=== PATIENT | male | born 1970 | race Caucasian/White ===

== ENCOUNTER 2018-03-08 09:34 | Day surgery (SDC) | payer BC ==
[2018-03-08] MEDS ORDERED: MULT-933 PO (10:00)
== END 2018-03-08 11:24 | disposition home or self-care (01) ==
LOC: WOUND CARE 09:34
PROVIDERS: ATTEND Surgery
DX: L72.3 Sebaceous cyst (principal); L53.8 Other specified erythematous conditions
CPT/HCPCS: 10061; A6212

== ENCOUNTER 2018-03-09 08:00 | Day surgery (SDC) | payer BC ==
[~2018-03-09] VITALS: Ht 195.6 cm; Wt 130.4 kg
[~2018-03-09 08:00] MED LIST: MULT-933 PO; ceFAZolin inj. 3,000 MG in normal saline 100ml IV soln 100 ML IV ONE; famotidine 20mg tablet PO ONE; ringers solution, lacted 1,000 ML IV SCH
[2018-03-09 09:18] LABS: BASOPHILS % (AUTO) 0.6 % (0-1); EOSINOPHILS # (AUTO) 0.2 X10'3 (0-0.9); EOSINOPHILS % (AUTO) 3.2 % (0-6); LYMPHOCYTES # (AUTO) 2.7 X10'3 (1.1-4.8); LYMPHOCYTES % (AUTO) 39.1 % (21-51); MEAN CORPUSCULAR HEMOGLOBIN 32.9 PG (27.0-31.0); MEAN CORPUSCULAR HGB CONC 34.4 % (33.0-36.5); MEAN CORPUSCULAR VOLUME 95.5 FL (78-98); MEAN PLATELET VOLUME 8.6 FL (7.4-10.4); MONOCYTES # (AUTO) 0.4 X10'3 (0-0.9); MONOCYTES % (AUTO) 6.4 % (2-12); NEUTROPHILS # (AUTO) 3.5 X10'3 (1.8-7.7); NEUTROPHILS % (AUTO) 50.7 % (42-75); PRE OP HEMOGLOBIN 14.4 g/dL (14.0-17.9); PRE OP PLATELET COUNT 163 X10'3 (140-440); RED CELL DISTRIBUTION WIDTH 12.2 % (11.5-14.5)
[2018-03-09] MEDS ORDERED: ringers solution, lacted 1,000 ML IV SCH (09:37)
[2018-03-09] MEDS ORDERED: meperidine/PF 25mg/ml syringe IV PRN ×3 (09:40)
[2018-03-09] MEDS ORDERED: proCHLORperazine 10 MG/2 ml inj IV PRN (09:40)
[2018-03-09] MEDS ORDERED: morphine 4 MG/ML inj SYRINge IV PRN ×2 (09:40)
[2018-03-09] MEDS ORDERED: ondansetron/PF 4mg/2ml inj IV PRN (09:40)
[2018-03-09 09:46] LABS: ALBUMIN 3.4 G/DL (3.4-5.0); ALBUMIN/GLOBULIN RATIO 0.9 (1.1-1.5); ALKALINE PHOSPHATASE 69 IU/L (46-116); BLOOD UREA NITROGEN 12 MG/DL (7-18); BUN/CREATININE RATIO 13.8 (5.4-32.0); CALCIUM 9.2 MG/DL (8.5-10.1); CHLORIDE 106 MMOL/L (99-107); CREATININE 0.87 MG/DL (0.60-1.10); PRE OP ALT 34 U/L (30-65); PRE OP ANION GAP 12 (8-16); PRE OP AST 28 U/L (10-37); PRE OP BILIRUB, TOTAL 0.4 MG/DL (0.0-1.0); PRE OP GLUCOSE 99 MG/DL (70-104); PRE OP POTASSIUM 4.4 MMOL/L (3.4-5.1); PRE OP SODIUM 142 MMOL/L (135-145); TOTAL CARBON DIOXIDE 23.6 MMOL/L (24-32); eGFR > 90 ML/MIN
[2018-03-09] MEDS ORDERED: LIDOcaine 1% (10mg/ml) 2ml vial ONE (10:11)
[2018-03-09] MEDS ORDERED: LIDOcaine 1% 30ml preserv. free vial ONE (11:34)
[2018-03-09] MEDS ORDERED: BUPIVAcaine/PF 2.5mg/ml (0.25%) 10ml vial ONE (11:34)
[2018-03-09 11:41] VITALS: BP 125/76
[2018-03-09 11:48] VITALS: BP 125/76
[2018-03-09] MEDS ORDERED: fentaNYL/PF 50MCG/1 ML 2ML syringe ONE (11:53)
[2018-03-09] MEDS ORDERED: MIDAZolam 5mg/5ml vial ONE (11:54)
[2018-03-09] MEDS ORDERED: propofol inj 20 ML IV ONE (12:39)
[2018-03-09 13:05] VITALS: BP 124/81
[2018-03-09 13:15] VITALS: BP 126/81
[2018-03-09 13:25] VITALS: BP 130/93
[2018-03-09 13:35] VITALS: BP 125/84
== END 2018-03-09 13:50 | disposition home or self-care (01) ==
LOC: PAS 08:00
PROVIDERS: ATTEND Surgery
DX: D17.0 Benign lipomatous neoplasm of skin and subcutaneous tissue of head, face and neck (principal); E66.9 Obesity, unspecified; Z68.34 Body mass index [BMI] 34.0-34.9, adult; Z87.891 Personal history of nicotine dependence; Z98.890 Other specified postprocedural states; Z79.899 Other long term (current) drug therapy
CPT/HCPCS: 21556; 36415; 80053; 85025; A4615; A6255; A6449; J0690; J2250; J2704; J3010; J3490; J7030; J7120; 93005; A7000

== ENCOUNTER 2018-03-15 09:08 | Outpatient (CLI) | payer BC ==
[~2018-03-15 09:08] MED LIST changes: -ceFAZolin inj. 3,000 MG in normal saline 100ml IV soln 100 ML IV ONE; -famotidine 20mg tablet PO ONE; -ringers solution, lacted 1,000 ML IV SCH
== END 2018-03-15 11:47 | disposition home or self-care (01) ==
LOC: WOUND CARE 09:08 → EDSTATUS 09:30 → WOUND CARE 11:47
PROVIDERS: ATTEND Surgery
DX: D17.0 Benign lipomatous neoplasm of skin and subcutaneous tissue of head, face and neck (principal); L72.3 Sebaceous cyst; E66.9 Obesity, unspecified; Z68.34 Body mass index [BMI] 34.0-34.9, adult; Z79.899 Other long term (current) drug therapy; Z87.891 Personal history of nicotine dependence
CPT/HCPCS: 99215